=== PATIENT | male | born 1960 | race Caucasian/White ===

== ENCOUNTER 2017-02-14 09:37 | Inpatient (IN) | payer OTHER ==
[~2017-02-14] VITALS: Ht 180.3 cm; Wt 73.8 kg
[~2017-02-14 09:37] MED LIST: CELE200 PO; NEURONTIN PO; NOR10 PO
[2017-02-14 09:51] VITALS: BP 131/80; PULSE 110; RESP 12; O2SAT 92
--- NOTE | 2017-02-14 09:54 | ED.REPORT ---
HPI-General Illness Date of Service February 14, 2017 ED Provider: Pt is an otherwise healthy 56 year old male who presents to the ED with his brother for detox. Pt has been sober for the past 10 months, but his girlfriend recently left him causing him to drink for the past 6 days. He typically does not go require hospitalization for detox. In the last 6 days he has been drinking 4 cans of Locos. He has not had any hard liquor. His last drink was just prior to arrival. He lives alone, but his brother lives close by and has been checking on him. Pt smokes cigarettes. He does not use any other illicit drugs. When going through detox before, the pt has taken Librium. He denies having seizures. Pt has no suicidal ideations, and has not been diagnosed with depression or bipolar disorder. Pt admits to vomiting. Pt denies fainting, hematemesis, headache, fever, SOB or chest pain. He does not have history of hypertension, coronary artery disease, high cholesterol or prior strokes. He is not on any regular medications. The patient has a primary care provider in [place] but cannot recall the name. Nursing Notes Stated Complaint: EVAL/DETOX Chief Complaint: Substance Abuse Nursing Notes Reviewed: Yes Allergies: Coded Allergies: aspirin (Verified Allergy, Severe, CRAMPS, 10/26/13) Penicillins (Verified Allergy, Unknown, 02/14/17) Uncoded Allergies: PCN (Allergy, Unknown, DOTS, 02/14/17) General Time Seen by MD: 09:53 Chief Complaint Other (Alcoholism; want go into detox) Hx Obtained From: Patient, Other family... (brother) Arrived By: Walk-in Sudden in Onset?: No Onset Occurred: 6 days ago Context of Onset: Other (Girlfriend broke up with him) Symptom Duration: Since onset Severity: Current: No pain currently Severity: Maximum: No pain Context Related History: Reports Drug use/abuse suspected Recent Healthcare: No recent hospitalization Similar Sx Previous: Yes Past Medical History Past Medical History History of alcohol abuse Denies: Hypertension, Transient ischemic attack Denies: Depression Past Surgical History Back surgery Smoking History Current Every Day Smoker Social History Pt lives alone, but his brother lives nearby. Has a history of alcholism. Alcohol Use: 3-5 per day Drug Use: Denies drug use Other Social History: Good social support, Lives alone, Local resident Occupation Works in [place] Ambulatory Status Independent Review of Systems Full Review of Systems Constitutional: Denies: Fever Respiratory: Denies: Shortness of breath Cardiovascular: Denies: Chest pain GI: Reports: Nausea, Vomiting, Denies: Hematemesis Skin: Denies Diaphoresis Neurologic: Denies: Headache Psychiatric: Denies: Depression, Suicidal ideation Complete sys rev & neg: except as marked. Physical Exam Vital Signs Vital Signs Date Time Temp Pulse Resp B/P Pulse Ox O2 Delivery O2 Flow Rate FiO2 02/14/17 09:51 110 12 131/80 92 Room Air Initial VS: Reviewed Head / Eyes: Atraumatic, Normocephalic, PERRL ENT: Mucous membranes moist, Conjunctiva normal, No scleral icterus Neck: Supple, Non-tender, Full range of motion Extremities: Vascular intact, Neuro intact, No swelling Skin: Warm, Dry Neurologic: Alert, Oriented Psychiatric: Mood/affect normal, Behavior normal, Normal thought content General/Constitutional: Awake, Alert Smell strongly of alcohol. He is upset but focused. Respiratory / Chest: No respiratory distress, No wheezing rhonchi in left lower lobe and axillary line Cardiovascular: Regular rhythm, Heart sounds NL, No murmurs Heart Rate / Rhythm: Positive: Tachycardia Good peripheral pulses. No edema. Abdomen: Atraumatic, Soft, Non-tender, No guarding, No rebound, BS normoactive , No distention, No hernia, No palpable mass, No pulsatile mass Organomegaly / Mass / Hernia: Negative: Hepatomegaly, Splenomegaly Upper Extremities Upper Extremity / MS: No deformity, No edema Lower Extremity / Pelvis / MS: No deformity, No edema Skin: Atraumatic Color / Condition: Negative: Erythema generalized Palmar erythema. No telangiectasis. No bruising. Neurologic: Oriented X3, Speech NL, No sensory deficits Tremulus. No asterixes. Interpretation & Diagnostics Lab Results Interpretation Result Diagram: 02/14/17 1020 02/14/17 1020 Test 02/14/17 10:20 White Blood Count 10.9th/mm3 (3.8-10.1) Red Blood Count 5.82mil/mm3 (4.40-5.80) Hemoglobin 17.5g/dL (13.8-17.2) Hematocrit 46.7% (41.0-50.0) Mean Corpuscular Volume 80.2fL (81-100) Mean Corpuscular Hemoglobin 30.1pg (27.0-35.0) Mean Corpuscular Hemoglobin Concent 37.5% (32.0-37.0) Red Cell Distribution Width 14.6% (12.3-15.4) Platelet Count 241bil/L (150-400) Neutrophils (%) (Auto) 72.0% (40-74) Lymphocytes (%) (Auto) 20.0% (14-46) Monocytes (%) (Auto) 6.8% (4-12) Eosinophils (%) (Auto) 0.2% (0-5) Basophils (%) (Auto) 0.6% (0-3) Prothrombin Time 9.9sec (8.1-12.5) Prothromb Time International Ratio 0.93ratio Activated Partial Thromboplast Time 28.3sec (22.8-33.0) Sodium Level 139mEq/L (134-144) Potassium Level 3.4mEq/L (3.5-5.2) Chloride Level 95mEq/L (97-108) Carbon Dioxide Level 21mmol/L (18-29) Blood Urea Nitrogen 9mg/dL (6-24) Creatinine 0.73mg/dL (0.76-1.27) Estimat Glomerular Filtration Rate 119mL/min (>59) Glucose Level 218mg/dL (60-99) Calcium Level 8.8mg/dL (8.5-10.1) Phosphorus Level 2.2mg/dL (2.5-4.9) Magnesium Level 2.1mg/dL (1.6-2.6) Total Bilirubin 0.5mg/dL (0.0-1.2) Aspartate Amino Transf (AST/SGOT) 76U/L (0-50) Alanine Aminotransferase (ALT/SGPT) 67U/L (0-44) Alkaline Phosphatase 77U/L (25-150) Total Protein 7.4g/dL (6.4-8.4) Albumin 4.1g/dL (3.4-5.0) Lipase 62U/L (13-60) Hold Palmer Top Tube Received (Received) Alcohols 318mg/dL (0-10) ECG Interpretation ECG Interpretation: Sinus tachycardia with a rate of 96. Ventricular trigeminy RBBB and LPFB ST elev, probable normal early repol pattern No prior to compare Time: 10:28 Interpreted by: ED physician Re-Eval/Medical Decision Med Decision/Clinical Course 56-year-old gentleman presents with significant signs of alcohol withdrawal with a current alcohol level of over 300. He has had difficulties with withdrawal in the past needing detox. He does not describe previous seizures. 1200 CIWA score: 3 Nausea,7 tremor , 4 sweats,4 anxiety, 4 agitation,0 tactile/auditory/visual/headache/orientation ,= 22 with ETOH level at 316 (discussed Nursing CIWA eval and disagree, my assessment of tremor/anxiety/agitation is significantly different and is based on the time I spent with initial exam and history) He has left and right bundle-branch blocks on his EKG with PVCs frequently enough that he is actually in trigeminy. Potassium and phosphorus are both low mildly elevated transaminases and lipase. He is interested in stopping drinking has had long periods of sobriety in the past at this point I am significantly concerned about the continued tachycardia relative EKG changes indicating electrolyte and cardiotoxic effects from the alcohol to his heart and I am concerned that his detox is going to get significantly worse with the CIWA score of 22 and current alcohol level at 316 simultaneously Source of Hx: Family Time of Eval: 12:06 Patient Status: Mild relief Re-Evaluation/Progress Note: Pt rechecked. Informed pt of plan for admission. Pt understands and agrees with plan. All questions addressed. Consultation : Referral / Consult Name: Kentrell Davila MD Consulted With: Hospitalist Requested Call at: 12:01 Call Returned at: 12:01 Semiconductor Equipment Technician: Agrees with eval, Agrees with plan, Accepts admit Counseled Regarding: Diagnosis, Lab results, Need for admission Discharge & Departure Primary Impression: Alcohol withdrawal Complication of substance-induced condition: uncomplicated Qualified Code: F10.230 - Alcohol dependence with withdrawal, uncomplicated Additional Impressions: Hypokalemia Hypophosphatemia Alcoholic hepatitis Ascites presence: without ascites Qualified Code: K70.10 - Alcoholic hepatitis without ascites Ruled Out: Sepsis, Liver failure, STEMI (ST elevation myocardial infarction) Disposition: ADMITTED TO HOSPITAL Discharge Condition All VS Reviewed: Yes Condition: Stable Referrals: Daria Mercer MD (PCP) Scribe Attestation Portions of this note were transcribed by Kamilla Monzon and Elicia Kelly. I, Dr. Apodaca personally performed the history, physical exam and medical decision- making; I reviewed and confirmed the accuracy of the information in the transcribed note. Signed by: Kamilla Monzon and Elicia Kelly, Angelaibe, 02/14/17 and 12:15. copies to: Daria Mercer MD, Shawna L MD February 14, 2017 09:54 Elicia Munoz February 14, 2017 10:25 Kamilla Monzon February 14, 2017 10:54
[2017-02-14] MEDS ORDERED: Ondansetron 2 mg/mL 2 mL Inj IVPUSH ONE (10:15)
[2017-02-14] MEDS ORDERED: Thiamine Inj 100 MG, Folic Acid Inj 1 MG, Magnesium Sulfate 50% Inj 2 GM, Multivitamins... IV ONE ×5 (10:15)
[2017-02-14 10:32] LABS: BASOPHILS % (AUTO) 0.6 % (0-3); EOSINOPHILS % (AUTO) 0.2 % (0-5); MONOCYTES % (AUTO) 6.8 % (4-12); Mean Corpuscular Hemoglobin 30.1 pg (27.0-35.0); Mean Corpuscular Volume 80.2 fL (81-100); Platelet Count 241 bil/L (150-400)
[2017-02-14 10:48] LABS: INR 0.93 ratio
[2017-02-14 10:54] LABS: Magnesium 2.1 mg/dL (1.6-2.6); Phosphorus 2.2 mg/dL (2.5-4.9)
[2017-02-14] MEDS ORDERED: Potassium Chloride 20 mEq SR Tablet PO ONE (11:40)
[2017-02-14] MEDS ORDERED: Multivitamin w/Vit K Inj 10 ML, Thiamine Inj 100 MG, Folic Acid Inj 1 MG, Magnesium Sul... IV ONE ×5 (12:01)
[2017-02-14] MEDS ORDERED: Polyethylene Glycol (PEG) 17 Gm Powder PO PRN (12:05)
[2017-02-14] MEDS ORDERED: Ondansetron 2 mg/mL 2 mL Inj IVPUSH PRN (12:05)
[2017-02-14] MEDS ORDERED: Alum-Mag Hydrox-Simeth 30 mL Suspension PO PRN (12:05)
[2017-02-14 12:25] VITALS: BP 118/55; PULSE 104; RESP 16; O2SAT 93
--- NOTE | 2017-02-14 12:48 | PCM.HPMED ---
Subjective Date of Service February 14, 2017 Primary Provider: Admitting Physician: Kentrell Davila MD Primary Care Physician: Nopcp Attending Physician: Kentrell Davila MD Admit Status: From the Emergency Department, Admit to [facility] Team Chief Complaint: 56-year-old man with alcohol abuse disorder presents with acute intoxication and desire to detox History of Present Illness: Patient's chief complaint is intoxication and desire to detox. Patient has long -standing history of alcohol abuse. He has been sober for approximately 7 months until the past week when he began drinking after a relationship breakup. He states that it been sober since prior to this time. Reports drinking substantial amount of wine but is not specific. His drinking is associated with tremulousness which she has had for the past week. He feels distressed but not particularly anxious. He has a history of occasional gastritis symptoms but not worse at this time. He had one episode of emesis in the emergency department but otherwise has no ongoing nausea. He denies any other intercurrent medical problems. He has had no falls. He has no history of alcohol withdrawal seizures. Review of Systems: 11 systems were reviewed with significant findings noted in history of present illness. Other findings include chronic cervical and lumbar back pain which is not worse recently. 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 Hx Alcohol Use: Yes Hx Substance Use: No Hx Tobacco Use: Yes (1.5 packs per day) Smoking Status: Current Every Day Smoker Living Arrangement: Alone Exam Vital Signs Vital Sign - Last Date Time Temp Pulse Resp B/P Pulse Ox O2 Delivery O2 Flow Rate FiO2 02/14/17 12:25 104 16 118/55 93 2 02/14/17 09:51 Room Air Exam Constitutional: appears plethoric; no acute distress; vital signs noted Eyes: sclerae anicteric, no conjunctival pallor, ENMT: ears, nose atraumatic; oral mucosa dry Neck: supple, JVD absent, healed surgical scar Chest: symmetric, no pain or lesions Resp: auscultation clear, no wheezes, rales or dullness Cardiac: S1, S2, regular, no murmur Abdomen: bowel sounds present, nontender, no organomegaly : inspection WNL Musculoskeletal: no joints with acute erythema, swelling Skin and soft tissues: no rash; no pitting edema Peripheral pulses: normal at wrist, feet Lymphatic: no adenopathy cervical Neurological: Cranial Nerves - face symmetric Reflexes - BJ, KJ symmetric 2+ Motor - 5/5 strength, normal tone Coordination - slow but normal movement, moderate tremor Sensory - light touch intact Psych & Mental Status - oriented with slightly slurred speech Lab and Diagnostics Result Diagram: 02/14/17 1020 02/14/17 1020 12-lead ECG EKG 02/14/17 10:28 sinus rhythm rate 96, right axis deviation, normal MO and QTC intervals; trigeminal APCs, upsloping lateral ST segments. Assessment & Plan 56-year-old male with history of alcohol and tobacco abuse disorders presents with acute intoxication and desire to detox. # acute alcohol intoxication, acute, present on admission. - Banana bag hydration - Supportive measures # Alcohol withdrawal, not present on admission. At this time he appears to be mostly intoxicated. He appears to have tremor related to alcohol use but few other symptoms of alcohol withdrawal at this point. - Observe with CIWA protocol precautions; initiate benzodiazepines as needed after intoxication. - Push oral hydration at this point # Hypokalemia, acute, present on admission. Serum potassium 3.4 on admission. Intravenous potassium given in ED. - Monitor and replete electrolytes as needed # Hyperglycemia, acute, present on admission. Blood glucose 208 on admission. - Monitor capillary blood glucose - 4 times a day capillary blood glucose - Glucose control goals: Random less than 180, fasting less than 140, none less than 70 - Insulin as needed, correctional 24 hours then adjust as needed # Erythrocythemia, chronic, present on admission. Presume related to heavy tobacco use. No other neurologic abnormality. - Follow with IV fluids and by mouth hydration # Tobacco abuse, chronic, present on admission. - Nicotine patch when necessary # Venous thromboembolism prophylaxis - Lovenox subcutaneous Pain Evaluation: Adequate Pain Control GI Prophylaxis: H2 jevon VTE Prophylaxis: Sub-Q Enoxaparin Resuscitation Status: CPR: Attempt Resuscitation Time spent 60 min Kentrell Davila MD February 14, 2017 12:48
[2017-02-14 14:04] VITALS: BP 142/83; PULSE 83; O2SAT 96
[2017-02-14 14:11] VITALS: PULSE 102
[2017-02-14] MEDS ORDERED: Dextrose 10% 250 ML IV PRN (15:15)
[2017-02-14] MEDS ORDERED: Glucose 40% Oral Gel 15 Gm Tube PO PRN (15:15)
--- NOTE | 2017-02-14 15:47 | NUR ---
Admit/CIWA Pt arrived on floor from ED in stable condition about 1400. A&O, able to transfer from [facility] to bed with no assistance needed. TELE ST, pt 95% on RA. CIWA score 12, RASS score 0, pt denies any pain, SOB or dizziness. Gave 10mg of valium with good effect, pt sleeping, easily woken. Able to eat sandwich and pudding with no nausea and vomiting. Seizure precautions initiated, transfer of care to Harriett Humphrey RN.
--- NOTE | 2017-02-14 17:08 | DRSVH ---
PROCEDURE: X-RAY CHEST ONE VIEW, PORTABLE ([id number]) INDICATIONS: hypoxia TECHNIQUE: One view of the chest was acquired. COMPARISON: None. FINDINGS: Surgical changes and devices: Partially visualized cervical fixation plates. Lungs and pleura: No pleural effusions or pneumothorax. Lungs are clear. Mediastinum: Mediastinal contours appear normal. Heart size is normal. Bones and chest wall: No suspicious bony lesions. Overlying soft tissues appear unremarkable. IMPRESSION: No acute pulmonary process. Dictated by: Cassandra Ceballos M.D. on 02/14/2017 at 17:05 Approved by: Cassandra Ceballos M.D. on 02/14/2017 at 17:06
[2017-02-14] MEDS: Insulin LISPRO 300 Unit/3 mL Inj SUBQ SCH ×2 (17:30→22:00)
--- NOTE | 2017-02-14 17:46 | NUR ---
transfer pt/New IV Report taken from Sarita Rashid Pt VSS. CIWA 12. New IV placed in RFA. 5 mg Valium administered. Care continues.
[2017-02-14 20:48] VITALS: BP 112/67; PULSE 98; RESP 20; O2SAT 93
[2017-02-14 23:03] VITALS: BP 121/64; PULSE 89; RESP 20; O2SAT 93
[2017-02-15] VITALS (8 sets, daily range): BP systolic 114–148; BP diastolic 75–114; PULSE 75–98; RESP 16–20; O2SAT 92–96
[2017-02-15 03:08] LABS: Mean Corpuscular Hemoglobin 29.8 pg (27.0-35.0); Mean Corpuscular Volume 83.3 fL (81-100)
--- NOTE | 2017-02-15 05:19 | NUR ---
CIWA Scores At beginning of shift pt CIWA score was 23 and pt given 10mg diazepam. Pt's score began to decrease after pt received 30mg of diazepam. Pt's last CIWA score was 11 and pt was given 10mg of diazepam. The total amount of diazepam given during this shift was 50mg. Pt is currently sleeping and has been put on a continuous pulse ox. Pt also has 2L NC on since pt desats during sleep without it. Pt continues to be AOx3 but has a donal pad underneath him since he is still unsteady on his feet and needs SBA to ensure no falls occur. At beginning of shift pt's HR was 90s-100s but after pt received an adequate amount of diazepam pt's HR went down into the 80s and the pt's PVC count decreased.
[2017-02-15] MEDS: Insulin LISPRO 300 Unit/3 mL Inj SUBQ SCH ×4 (07:57→21:43)
[2017-02-15] MEDS: Multivit-Miner-Folic Acid-Iron Tablet PO SCH (10:06)
--- NOTE | 2017-02-15 10:15 | NUR ---
CIWA Pt CIWA 18 beginning of shift. States nauseous, visible shaking. States headache has not gone away since 2200 last night. 10 mg Valium administered. 650 mg Tylenol administered. Care continues.
--- NOTE | 2017-02-15 10:36 | NUR ---
Social Work: Screen D: Per EMR review, pt is a 56 year old male admitted for alcohol withdrawal, electrolyte abnormal. Pt is [facility] with no supplement. PCP is not listed. NOK is Donavon Garcia, pt's brother. Advanced directives have not been completed. Readmit score is low, 2/8. Pt lives in [place] and is I at baseline. Pt discussed in multidisciplinary rounds. Pt is in active withdrawals from ETOH with a CIWA score of 18. Pt is not appropriate for CD assessment at this time. A: Pt who is I at baseline P: BOWLING BALL ENGRAVER to follow up with patient to complete CD assessment, provide resources and discuss dcp once pt is appropriate. BOWLING BALL ENGRAVER to continue to follow. FITO Cheung
--- NOTE | 2017-02-15 13:48 | NUR ---
Headache Pt states headache is much better. States pounding on left taoist is gone, residual ache but manageable for now. Pt asking for it to be available PRN in case headache is out of control again. MD notified. Care continues.
--- NOTE | 2017-02-15 14:19 | PCM.PNMED ---
Subjective Date of Service February 15, 2017 Subjective 56-year-old man with alcohol abuse disorder presents with acute intoxication and desire to detox. No appetite but trying to eat. Moderate to severe headache since last night. Exam Vital Signs Vital Sign - Last Date Time Temp Pulse Resp B/P Pulse Ox O2 Delivery O2 Flow Rate FiO2 02/15/17 12:21 36.7 89 18 137/88 94 Room Air 02/14/17 12:25 2 Intake and Output 02/14/17 02/14/17 02/15/17 Cumulative From/Thru 15:00 23:00 07:00 02/14/17 09:51 - 02/15/17 05:29 Intake Total 810 ml 810 ml Output Total 675 ml 675 ml Balance 135 ml 135 ml Intake Oral 810 ml 810 ml Output Urine Total 675 ml 675 ml # Voids 6 6 Exam General: Middle-aged man, disheveled, no acute distress HEENT: sclerae anicteric, oral mucosa moist Neck: no JVD Chest: clear to auscultation Cardiac: S1S2, no murmur Abdomen: BS normal, non-tender Extremities: No pitting edema Neuro: A&O, cranial nerves symmetric, pupils 3 mm equal, motor strength 5/5, coordination normal, moderate tremor, no asterixis IVs and Medications Medications Reviewed: Medications were reviewed in detail Lab and Diagnostics Result Diagram: 02/15/17 0240 02/15/17 0240 12-lead ECG EKG 02/14/17 10:28 sinus rhythm rate 96, right axis deviation, normal NH and QTC intervals; trigeminal APCs, upsloping lateral ST segments. Assessment & Plan 56-year-old male with history of alcohol and tobacco abuse disorders presents with acute intoxication and desire to detox. # acute alcohol intoxication, acute, present on admission. He received Banana bag hydration - Supportive measures # Alcohol withdrawal, not present on admission. At this time he appears to be mostly intoxicated. He appears to have tremor related to alcohol use but few other symptoms of alcohol withdrawal at this point. - Observe with CIWA protocol precautions; initiate benzodiazepines as needed after intoxication. - Discontinue IV and encourage oral hydration - Continue oral thiamine and folate # Headache, not present on admission. No localizing signs. No evidence of head trauma. - Acetaminophen - Trial ketorolac # Hypokalemia, acute, present on admission. Serum potassium 3.4 on admission. Intravenous potassium given in ED. now resolved. - Monitor and replete electrolytes as needed # Hyperglycemia, acute, present on admission. Blood glucose 208 on admission. - Monitor capillary blood glucose - 4 times a day capillary blood glucose - Glucose control goals: Random less than 180, fasting less than 140, none less than 70 - Insulin as needed, correctional 24 hours then adjust as needed # Erythrocythemia, chronic, present on admission. Presume related to heavy tobacco use. No other neurologic abnormality. - Follow with IV fluids and by mouth hydration # Tobacco abuse, chronic, present on admission. - Nicotine patch when necessary # Venous thromboembolism prophylaxis - Lovenox subcutaneous GI Prophylaxis: H2 jevon VTE Prophylaxis: Sub-Q Enoxaparin VTE Mechanical Devices: Intermittant Pneumatic CD Resuscitation Status: CPR: Attempt Resuscitation Time spent 25 minutes Kentrell Davila MD February 15, 2017 14:19
[2017-02-15] MEDS ORDERED: Ketorolac 15 mg/mL Inj IVPUSH PRN (15:25)
--- NOTE | 2017-02-15 18:17 | NUR ---
spiritual care: pt request brief introductory visit. pt pleasant, polite, eating dinner, commented on receiving "yves' protection, many times" expressed no particular sp. care needs,
--- NOTE | 2017-02-15 18:26 | NUR ---
Pain Pt states he can feel his heart beat in left jainism again. Pain is 6/10, does not want light on in room. Administering 15mg Ketoralac. Care continues.
--- NOTE | 2017-02-15 18:42 | NUR ---
CIWA/Pain Pt CIWA final score 11. Pt remains unsteady on his feet. 1PA all day to bathroom, pt uses call light in BR appropriately. Understands fall risk. Administered 30 mg total Valium. Pt states he feels like his withdrawals are being managed appropriately. Pt states pain is a 6 for headache. States his headache feel like his heart beat is in his left sikhism. Administered 15 mg Toradol. Total amount administered is 45 mg. Care continues.
[2017-02-16 03:09] VITALS: BP 121/72; PULSE 96; RESP 20; O2SAT 95
[2017-02-16 05:32] VITALS: PULSE 94
--- NOTE | 2017-02-16 05:50 | NUR ---
CIWA Pt has not required any diazepam this shift when being assessed for CIWA. Pt's CIWA scores were 8 and 7. Pt continued to have tremors and a headache through the beginning of the shift. This AM pt continues to have a tremor but says that the headache is no longer there. Pt did not require any toradol for his headache during the shift. Pt went to the bathroom with a SBA and was more steady on his feet this AM when ambulating.
[2017-02-16] MEDS: Insulin LISPRO 300 Unit/3 mL Inj SUBQ SCH ×2 (08:00→12:00)
[2017-02-16 08:14] VITALS: BP 134/97; PULSE 89; RESP 18; O2SAT 92
--- NOTE | 2017-02-16 08:23 | DRSVH ---
PROCEDURE: CT BRAIN WITHOUT CONTRAST ([id number]) INDICATIONS: new severe headache; alcoholic TECHNIQUE: Noncontrast 4.5 mm thick angled axial sections acquired from the foramen magnum to the vertex, with c oronal reformats. COMPARISON: None. FINDINGS: Image quality: Excellent. CSF spaces: Basal cisterns are patent. No extra-axial fluid collections. Ventricles are normal in size and shape. Brain: No midline shift. No intracranial masses or hemorrhage. Dahl-white matter interface is norm al. Skull and face: Calvarium and visualized facial bones are intact, without suspicious lesions. Sinuses: Visualized sinuses and mastoids are clear. IMPRESSION: No acute process. Dictated by: Kp Bright M.D. on 02/16/2017 at 8:20 Approved by: Kp Bright M.D. on 02/16/2017 at 8:21
[2017-02-16] MEDS: Multivit-Miner-Folic Acid-Iron Tablet PO SCH (08:26)
[2017-02-16 10:20] VITALS: PULSE 117
--- NOTE | 2017-02-16 11:27 | NUR ---
Social Work: Chemical Dependency Assessment/Readiness for Discharge D: Per EMR review, pt is on day 2 of hospitalization for alcohol withdrawal, electrolyte abnormal. Per RN in multidisciplinary rounds, pt's most recent CIWA score is 0. SW received physician order to consult with pt regarding alcohol use. FINANCIAL COORDINATOR met with pt at bedside to complete chemical dependency assessment. Pt resides in [place] and works in [place]. Pt has a PCP in [place] with the [facility]. Pt is independent at baseline. Pt reports he has been sober since and is hopeful to continue his sobriety. Pt reports frustration with his SO and access to alcohol contributed to his recent alcohol use. Pt declined speaking with CDP from [facility] and declined completing chemical dependency assessment in full as pt feels that he has supports coordinated at discharge. Pt reports he is connected with AA meetings in [place]. He has also been seen in the past by Psychologist Nikita Billings, PhD in [place]. Pt anticipates returning to this practitioner at discharge. Pt reports his brother Donavon has already taken all of the alcohol out of his home. Pt accepted CD resources from SW at bedside. Pt to discharge home via walking when medically ready. No additional SW needs identified. A: Pt who is I at baseline P: Pt declined completing CD assessment in full as he states he has the necessary supports including family, AA, CD resources, and a psychologist. CD resources provided at bedside. Pt to discharge home via walking when medically ready, no additional SW needs identified. FITO Gandara
--- NOTE | 2017-02-16 11:47 | PCM.DIMED ---
Discharge Instructions Date of Service February 16, 2017 Dates of Hospitalization February 14, 2017 at 12:17 Discharge Diagnosis Discharge Diagnosis Alcohol intoxication; alcohol withdrawal Medication Instructions Additional med instructions No new medications have been prescribed. Test Results Test Results The hemoglobin A1c test 5.9% indicates that you may have prediabetes. Should discuss this with your primary care doctor. Diet Discharge Diet: No restrictions Activity Discharge Activity: No restrictions Patient Instructions Patient Instructions You have been given resource regarding alcohol cessation programs. We encourage you to pursue this. Follow-up plan Please provide information to obtain primary care provider at [facility] residency clinic. Kentrell Davila MD February 16, 2017 11:47
--- NOTE | 2017-02-16 11:52 | PCM.DC.MED ---
Discharge Summary Date of Service February 16, 2017 Dates of Hospitalization Date of Hospital Admission February 14, 2017 at 12:17 Date of Discharge: February 16, 2017 Providers: Admitting Physician: Kentrell Davila MD Primary Care Physician: Kole Attending Physician: Kentrell Davila MD Diagnosis at Time of Discharge Diagnosis at Time of Discharge Alcohol intoxication; alcohol withdrawal Procedures ECG 12 Lead EKG 02/14/17 10:28 sinus rhythm rate 96, right axis deviation, normal NC and QTC intervals; trigeminal APCs, upsloping lateral ST segments. Brief History Patient's chief complaint is intoxication and desire to detox. Patient has long -standing history of alcohol abuse. He has been sober for approximately 7 months until the past week when he began drinking after a relationship breakup. He states that it been sober since prior to this time. Reports drinking substantial amount of wine but is not specific. His drinking is associated with tremulousness which she has had for the past week. He feels distressed but not particularly anxious. He has a history of occasional gastritis symptoms but not worse at this time. He had one episode of emesis in the emergency department but otherwise has no ongoing nausea. He denies any other intercurrent medical problems. He has had no falls. He has no history of alcohol withdrawal seizures. Hospital Course 56-year-old male with history of alcohol and tobacco abuse disorders presents with acute intoxication and desire to detox. # acute alcohol intoxication, acute, present on admission. He received Banana bag hydration # Alcohol withdrawal, not present on admission. He was treated with CIWA protocol precautions; benzodiazepines as needed after intoxication. Asymptomatic within 48 hours # Headache, not present on admission. No localizing signs. No evidence of head trauma. Noncontrast Brain CT was negative. He received several doses of Toradol. - Acetaminophen # Hypokalemia, acute, present on admission. Serum potassium 3.4 on admission. Intravenous potassium given in ED. now resolved. - Resolved # Hyperglycemia, acute, present on admission. Blood glucose 208 on admission. Hemoglobin A1c 5.9% indicating impaired glucose tolerance. - Defer to primary care follow-up # Erythrocythemia, chronic, present on admission. Presume related to heavy tobacco use. No other neurologic abnormality. - Dehydration related, resolved at discharge. # Tobacco abuse, chronic, present on admission. Counseled regarding healthy benefits of smoking cessation. # Venous thromboembolism prophylaxis. He received Lovenox subcutaneous . Exam Vital Signs (Last) Date Time Temp Pulse Resp B/P Pulse Ox O2 Delivery O2 Flow Rate FiO2 02/16/17 10:20 117 02/16/17 08:14 36.5 18 134/97 92 Room Air 02/15/17 21:34 1.00 Exam General: Generally healthy appearing, no acute distress HEENT: sclerae anicteric, oral mucosa moist Neck: no JVD Chest: clear to auscultation Cardiac: S1S2, no murmur Abdomen: BS normal, non-tender Extremities: No edema Neuro: A&O, cranial nerves symmetric, motor strength 5/5, no tremor, gait is normal Test 02/14/17 10:20 02/15/17 02:40 02/16/17 02:30 Neutrophils (%) (Auto) 72.0% (40-74) Lymphocytes (%) (Auto) 20.0% (14-46) Monocytes (%) (Auto) 6.8% (4-12) Eosinophils (%) (Auto) 0.2% (0-5) Basophils (%) (Auto) 0.6% (0-3) Prothrombin Time 9.9sec (8.1-12.5) Prothromb Time International Ratio 0.93ratio Activated Partial Thromboplast Time 28.3sec (22.8-33.0) Hemoglobin A1c 5.9% (4.8-5.6) Phosphorus Level 2.2mg/dL (2.5-4.9) Magnesium Level 2.1mg/dL (1.6-2.6) Total Bilirubin 0.5mg/dL (0.0-1.2) Aspartate Amino Transf (AST/SGOT) 76U/L (0-50) Alanine Aminotransferase (ALT/SGPT) 67U/L (0-44) Alkaline Phosphatase 77U/L (25-150) Total Protein 7.4g/dL (6.4-8.4) Albumin 4.1g/dL (3.4-5.0) Lipase 62U/L (13-60) Vitamin B12 Level 537pg/mL (211-946) Hold Palmer Top Tube Received (Received) Alcohols 318mg/dL (0-10) White Blood Count 9.9th/mm3 (3.8-10.1) Red Blood Count 4.84mil/mm3 (4.40-5.80) Hemoglobin 14.4g/dL (13.8-17.2) Hematocrit 40.3% (41.0-50.0) Mean Corpuscular Volume 83.3fL (81-100) Mean Corpuscular Hemoglobin 29.8pg (27.0-35.0) Mean Corpuscular Hemoglobin Concent 35.7% (32.0-37.0) Red Cell Distribution Width 14.5% (12.3-15.4) Platelet Count 190bil/L (150-400) Sodium Level 137mEq/L (134-144) Potassium Level 4.2mEq/L (3.5-5.2) Chloride Level 101mEq/L (97-108) Carbon Dioxide Level 24mmol/L (18-29) Blood Urea Nitrogen 10mg/dL (6-24) Creatinine 0.66mg/dL (0.76-1.27) Estimat Glomerular Filtration Rate 134mL/min (>59) Glucose Level 109mg/dL (60-99) Calcium Level 9.0mg/dL (8.5-10.1) Discharge Medications No Active Prescriptions or Reported Meds Additional med instructions No new medications have been prescribed. Followup Plan Disposition: Home Follow-up plan Please provide information to obtain primary care provider at [facility] residency clinic. Discharge Diet: No restrictions Discharge Activity: No restrictions Patient Instructions You have been given resource regarding alcohol cessation programs. We encourage you to pursue this. Time spent 25 Kentrell Davila MD February 16, 2017 11:52
--- NOTE | 2017-02-16 12:23 | NUR ---
Discharge pt ordered for discharge home with self. discharge instructions reviewed with patient. no new medications. pt with steady gait, escorted to main entrance with all belonging at about 1220.
--- NOTE | 2017-02-16 13:00 | NUR ---
Discharge papers when stripping room and prepping for housekeeping, patients discharge papers/instructions found. papers mailed to patient's home.
--- NOTE | 2017-02-16 13:33 | NUR ---
Social Work- Discharge Data: Pt discharged today. SW provided pt with CD resources. Pt to discharge home via walking, no additional social work needs identified. Assessment: Pt who is independent at baseline Plan: Pt accepted CD resources and discharged home via walking, no discharge needs identified at this time. Ines Aggarwal MSW
== END 2017-02-16 12:30 | disposition home or self-care (01) | DRG 897 ==
LOC: SED 09:37 → PCC 12:17 → OBSVTOIN 12:17
PROVIDERS: ADMIT Internal Medicine; ATTEND Internal Medicine
DX: F10.239 Alcohol dependence with withdrawal, unspecified (principal); F17.210 Nicotine dependence, cigarettes, uncomplicated; Y90.8 Blood alcohol level of 240 mg/100 ml or more; F10.229 Alcohol dependence with intoxication, unspecified; T51.0X1A Toxic effect of ethanol, accidental (unintentional), initial encounter; E87.6 Hypokalemia; D45 Polycythemia vera; R51 Headache; R73.9 Hyperglycemia, unspecified

== ENCOUNTER 2017-02-20 13:28 | Emergency (ER) | payer OTHER ==
[~2017-02-20] VITALS: Ht 180.3 cm; Wt 72.7 kg
[2017-02-20 13:38] VITALS: BP 142/97; PULSE 124; RESP 20; O2SAT 97
--- NOTE | 2017-02-20 15:34 | ED.REPORT ---
HPI-Overdose/Alcohol Toxicity Date of Service February 20, 2017 ED Provider: Doc,Ed MD The patient is a 56 year old male with history of alcohol abuse, who presents to the emergency department requesting help with alcohol detox. The patient was recently admitted here for 2.5 days for alcohol withdrawal, hypokalemia, hypophosphatemia, and alcoholic hepatis. He was discharged a few days ago. He started to feel shaky after he was home and started drinking again. His last drink was just prior to arrival. He denies tremors, abdominal pain, chest pain or vomiting. When he is drinking alcohol he is drinking everyday. He denies history of alcoholic seizures. He denies illicit drug use. Nursing Notes Stated Complaint: DETOX Chief Complaint: Substance Abuse Nursing Notes Reviewed: Yes Allergies: Coded Allergies: aspirin (Verified Allergy, Severe, CRAMPS, 10/26/13) Penicillins (Verified Allergy, Unknown, 02/14/17) Uncoded Allergies: PCN (Allergy, Unknown, DOTS, 02/14/17) No Active Prescriptions or Reported Meds General Time Seen by Provider: 15:43 Chief Complaint Other (alcohol use) Hx Obtained From: Patient Arrived By: Walk-in Onset Occurred: 2 days ago Symptom Duration: Since onset Progression Since Onset: Constant Severity: Current: Moderate Severity: Maximum: Moderate Recent Healthcare: Recent doctor visit, Recent hospitalization Similar Sx Previous: Yes Past Medical History Past Medical History History of alcohol abuse Past Surgical History Back surgery Family History Noncontributory Smoking History Current Every Day Smoker Social History Pt lives alone, but his brother lives nearby. Has a history of alcholism. 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 Physical Exam Initial Vital Signs Vital Signs (First) Date Time Temp Pulse Resp B/P Pulse Ox O2 Delivery O2 Flow Rate FiO2 02/20/17 13:38 36.7 124 20 142/97 97 Initial VS: Reviewed Head / Eyes: Atraumatic, Normocephalic, PERRL ENT: Mucous membranes moist, Conjunctiva normal, No scleral icterus Neck: Supple, Non-tender, Full range of motion Lymphatic: No lymphadenopathy Extremities: Vascular intact, Neuro intact, No swelling, No tenderness General/Constitutional: Awake, Alert, Cooperative Respiratory / Chest: Atraumatic, Breath sounds NL, Breath sounds = bilat, No respiratory distress, No rales, No rhonchi, No wheezing Cardiovascular: Heart rate NL, Regular rhythm, Heart sounds NL, No gallop, No murmurs, No rubs, Cap refill not delayed, Peripheral circulation NL Abdomen: Atraumatic, Soft, Non-tender, No guarding, No rebound, BS normoactive , No distention Neurologic: Oriented X3, Speech NL, No motor deficits, No sensory deficits Not tremulous Psychiatric: Affect NL, Mood NL, Not suicidal, Not homicidal, No hallucinations , Cognitive function NL, Judgment/insight NL, Thought content NL Skin: Atraumatic, Color NL, No rash, Warm, Dry, Intact, Turgor NL, No swelling Color / Condition: Negative: Diaphoresis present Re-Eval/Medical Decision Med Decision/Clinical Course Notified by staff the patient eloped. He was overall stable and did not appear to be in significant withdrawal. Source of Hx: Old records Re-Evaluation/Progress #1: Time of Eval: 16:06 Re-Evaluation/Progress Note: Discussed plan to speak with crisis respite. He is agreeable with this plan. Re-Evaluation/Progress #2: Time of Eval: 16:33 Re-Evaluation/Progress Note: The patient has eloped and left the department. Consultation : Consulted With: reed worker Call Returned at: 16:30 Note: ED public health social worker evaluated the patient and discussed plan for clearance to crisis respite. The patient is refusing detox and requesting a prescription to go home with. Counseled Regarding: Diagnosis, Lab results Discharge & Departure Impression: Primary Impression: Alcohol abuse Disposition: AGAINST MEDICAL ADVICE (eloped) Discharge Condition All VS Reviewed: Yes Condition: Stable Referrals: [facility] (PCP) Scribe Attestation Portions of this note were transcribed by Kamilla Monzon. I, Dr. Snyder personally performed the history, physical exam and medical decision-making; I reviewed and confirmed the accuracy of the information in the transcribed note. Signed by: Neto Honeycutt, 02/20/2017 at Norberto Avelar DO February 20, 2017 15:34 Nicolás,Kamilla Blake February 20, 2017 15:44
[2017-02-20] MEDS ORDERED: LORazepam 2 mg Tablet PO ONE (16:05)
== END 2017-02-20 16:35 | disposition left against medical advice (07) ==
LOC: SED 13:28
DX: F10.10 Alcohol abuse, uncomplicated (principal); F17.200 Nicotine dependence, unspecified, uncomplicated; Z88.0 Allergy status to penicillin; Z88.8 Allergy status to other drugs, medicaments and biological substances